=== PATIENT | female | born 1960 | race Two or more races ===

== ENCOUNTER 2018-07-27 07:56 | Emergency (ER) | payer MEDICARE, BC ==
[~2018-07-27] VITALS: Ht 152.4 cm; Wt 36.2 kg
[2018-07-27] MEDS ORDERED: ipratropium/albuterol 3ml nebule ONE (08:24)
[2018-07-27] MEDS ORDERED: methylPREDNISolone sod succ 125mg/2ml vial IV ONE (08:25)
[2018-07-27] MEDS ORDERED: ipratropium/albuterol 3ml nebule NEB ONE (08:25)
[2018-07-27 08:40] LABS: EOSINOPHILS # (AUTO) 0.1 X10'3 (0-0.9); EOSINOPHILS % (AUTO) 0.5 % (0-6); HEMOGLOBIN 14.7 g/dl (12.0-16.0); LYMPHOCYTES # (AUTO) 0.5 X10'3 (1.1-4.8); MONOCYTES # (AUTO) 0.6 X10'3 (0-0.9); PLATELET COUNT 174 X10'3 (140-440)
[2018-07-27 08:53] LABS: ALANINE AMINOTRANSFERASE 22 U/L (12-78); ALBUMIN 3.9 G/DL (3.4-5.0); ALBUMIN/GLOBULIN RATIO 1.5 (1.1-1.5); ALKALINE PHOSPHATASE 89 IU/L (46-116); ANION GAP 9 (8-16); ASPARTATE AMINO TRANSFERASE 12 U/L (10-37); BILIRUBIN,TOTAL 0.5 MG/DL (0.1-1.0); BLOOD UREA NITROGEN 13 MG/DL (7-18); CALCIUM 8.8 MG/DL (8.5-10.1); CHLORIDE 101 MMOL/L (99-107); GLUCOSE 102 MG/DL (70-104); POTASSIUM 3.5 MMOL/L (3.5-5.1); SODIUM 139 MMOL/L (135-145); TOTAL CARBON DIOXIDE 28.8 MMOL/L (24-32); TOTAL PROTEIN 6.5 G/DL (6.4-8.2); eGFR > 90 ML/MIN
[2018-07-27 09:17] LABS: BASOPHILS # (AUTO) 0.2 X10'3 (0-0.2); BASOPHILS % (AUTO) 1.3 % (0-1); HEMATOCRIT 44.7 % (35.0-45.0); LYMPHOCYTES % (AUTO) 3.9 % (21-51); MEAN CORPUSCULAR HEMOGLOBIN 31.3 PG (27.0-31.0); MEAN CORPUSCULAR HGB CONC 32.8 % (33.0-36.5); MEAN CORPUSCULAR VOLUME 95.3 FL (78-98); MEAN PLATELET VOLUME 10.2 FL (7.4-10.4); MONOCYTES % (AUTO) 4.8 % (2-12); NEUTROPHILS # (AUTO) 10.7 X10'3 (1.8-7.7); NEUTROPHILS % (AUTO) 89.5 % (42-75); RED BLOOD COUNT 4.69 X10'6 (4.20-5.60); RED CELL DISTRIBUTION WIDTH 12.3 % (11.5-14.5); WHITE BLOOD COUNT 12.1 X10'3 (4.5-11.0)
[2018-07-27] MEDS ORDERED: LORazepam 2 mg/ml vial IV ONE (09:20)
--- NOTE | 2018-07-27 09:58 | NUR ---
MICHAEL DIXON AT BEDSIDE FOR RE-EVALUATION NOW.
[2018-07-27] MEDS ORDERED: LEVO750T21 PO (10:06)
[2018-07-27] MEDS ORDERED: METH4TAB81 PO (10:06)
[2018-07-27 11:12] VITALS: BP 146/73
== END 2018-07-27 11:15 | disposition home or self-care (01) ==
LOC: ER 07:57
DX: J44.1 Chronic obstructive pulmonary disease with (acute) exacerbation (principal); R91.1 Solitary pulmonary nodule
CPT/HCPCS: 36415; 71046; 80053; 83605; 84484; 85025; 87040; 93005; 94640; 94760; 96374; 96375; 99284; J2060; J2930

== ENCOUNTER 2019-07-21 10:26 | Emergency (ER) | payer OTHER, MEDICARE ==
[~2019-07-21] VITALS: Ht 154.9 cm; Wt 50.0 kg
[~2019-07-21 10:26] MED LIST: METH4TAB81 PO
[2019-07-21 10:30] VITALS: BP 122/70
[2019-07-21] MEDS ORDERED: acetaminophen 325mg tablet PO ONE (10:40)
[2019-07-21] MEDS ORDERED: ondansetron/PF 4mg/2ml inj IV ONE (10:40)
[2019-07-21] MEDS ORDERED: normal saline 1000ml 1,000 ML IV ONE ×2 (10:40→11:45)
--- NOTE | 2019-07-21 11:06 | NUR ---
RELIEVING RN FOR BREAK, PT IS RESTING QUIETLY ON GURNEY, 1ST SET OF BLOOD CXS DRAWN, STARTED 22GU TO RT FOREARM ON 2ND ATTEMPT, 1 ST LITER NS INFUSING W/O, FLU SWAP DONE
--- NOTE | 2019-07-21 11:13 | NUR ---
PT MILTON WATER AND PO MED WELL, NO N/V, TURNED LIGHTS OFF, FAMILY AT BEDSIDE
[2019-07-21 11:14] LABS: BASOPHILS % (AUTO) 0.3 % (0-1); EOSINOPHILS % (AUTO) 0.4 % (0-6); HEMATOCRIT 40.9 % (35.0-45.0); HEMOGLOBIN 13.8 g/dl (12.0-16.0); LYMPHOCYTES # (AUTO) 0.3 X10'3 (1.1-4.8); LYMPHOCYTES % (AUTO) 3.8 % (21-51); MEAN CORPUSCULAR HEMOGLOBIN 31.8 PG (27.0-31.0); MEAN CORPUSCULAR HGB CONC 33.7 g/dL (33.0-36.5); MEAN CORPUSCULAR VOLUME 94.2 FL (78-98); MONOCYTES # (AUTO) 0.4 X10'3 (0-0.9); MONOCYTES % (AUTO) 5.7 % (2-12); NEUTROPHILS # (AUTO) 6.5 X10'3 (1.8-7.7); NEUTROPHILS % (AUTO) 89.8 % (42-75); PLATELET COUNT 138 X10'3 (140-440); RED BLOOD COUNT 4.34 X10'6 (4.20-5.60); RED CELL DISTRIBUTION WIDTH 13.8 % (11.5-14.5); WHITE BLOOD COUNT 7.2 X10'3 (4.5-11.0)
[2019-07-21 11:26] LABS: ALANINE AMINOTRANSFERASE 27 U/L (12-78); ALBUMIN 3.8 G/DL (3.4-5.0); ALBUMIN/GLOBULIN RATIO 1.6 (1.1-1.5); ALKALINE PHOSPHATASE 87 IU/L (46-116); ANION GAP 9 (8-16); ASPARTATE AMINO TRANSFERASE 16 U/L (10-37); BILIRUBIN,TOTAL 0.6 MG/DL (0.1-1.0); BLOOD UREA NITROGEN 21 MG/DL (7-18); BUN/CREATININE RATIO 36.2 (6.6-38.0); CALCIUM 8.4 MG/DL (8.5-10.1); CHLORIDE 100 MMOL/L (99-107); CREATININE 0.58 MG/DL (0.40-0.90); GLUCOSE 99 MG/DL (70-104); POTASSIUM 3.5 MMOL/L (3.5-5.1); SODIUM 137 MMOL/L (135-145); TOTAL CARBON DIOXIDE 28.4 MMOL/L (24-32); TOTAL PROTEIN 6.2 G/DL (6.4-8.2); eGFR > 90 ML/MIN
[2019-07-21 11:30] LABS: TROPONIN I < 0.04 NG/ML (0.0-0.05)
== END 2019-07-21 12:50 | disposition home or self-care (01) ==
LOC: ER 10:26
DX: J10.1 Influenza due to other identified influenza virus with other respiratory manifestations (principal); R11.10 Vomiting, unspecified; J44.9 Chronic obstructive pulmonary disease, unspecified; Z79.899 Other long term (current) drug therapy
CPT/HCPCS: 36415; 71045; 80053; 83605; 84145; 84484; 85025; 85610; 87502; 87503; 96361; 96374; 99284; J2405; J7030

== ENCOUNTER 2019-07-22 18:31 | Inpatient (IN) | payer BC, MEDICARE, OTHER ==
[~2019-07-22] VITALS: Ht 152.4 cm; Wt 45.0 kg
[~2019-07-22 18:31] MED LIST changes: +etomidate 2mg/ml inj. ONE
[2019-07-22] MEDS ORDERED: ketorolac trometh. 30mg/ml inj. IV ONE (19:30)
[2019-07-22] MEDS ORDERED: normal saline 1000ML IV soln IVB ONE ×2 (19:30→19:35)
[2019-07-22] MEDS ORDERED: dexamethasone sod phosphate 10mg/ml inj IV STA (19:33)
[2019-07-22] MEDS ORDERED: oseltamivir phos 75mg capsule PO ONE (19:35)
[2019-07-22] MEDS ORDERED: albuterol 2.5 MG/3 ML nebule CONTNEB PRN (19:35)
[2019-07-22] MEDS ORDERED: ondansetron/PF 4mg/2ml inj IV ONE (19:35)
[2019-07-22] MEDS ORDERED: ipratropium 0.5 MG/2.5ML nebule IH ONE (19:35)
[2019-07-22] MEDS ORDERED: LORazepam 2 mg/ml vial IV ONE (20:05)
[2019-07-22 20:06] LABS: BASOPHILS % (AUTO) 0.2 % (0-1); EOSINOPHILS % (AUTO) 0 % (0-6); HEMATOCRIT 38.6 % (35.0-45.0); HEMOGLOBIN 13.6 g/dl (12.0-16.0); LYMPHOCYTES # (AUTO) 0.1 X10'3 (1.1-4.8); LYMPHOCYTES % (AUTO) 0.7 % (21-51); MEAN CORPUSCULAR HEMOGLOBIN 32.2 PG (27.0-31.0); MEAN CORPUSCULAR HGB CONC 35.1 g/dL (33.0-36.5); MEAN CORPUSCULAR VOLUME 91.7 FL (78-98); MEAN PLATELET VOLUME 9.5 FL (7.4-10.4); MONOCYTES # (AUTO) 0.7 X10'3 (0-0.9); MONOCYTES % (AUTO) 5.7 % (2-12); NEUTROPHILS # (AUTO) 11.7 X10'3 (1.8-7.7); NEUTROPHILS % (AUTO) 93.4 % (42-75); PLATELET COUNT 138 X10'3 (140-440); RED BLOOD COUNT 4.21 X10'6 (4.20-5.60); RED CELL DISTRIBUTION WIDTH 12.9 % (11.5-14.5); WHITE BLOOD COUNT 12.6 X10'3 (4.5-11.0)
[2019-07-22] MEDS ORDERED: azithromycin/NS 500mg/250ml 250 ML IV ONE (20:10)
[2019-07-22] MEDS ORDERED: CefTRIAXone 2gm/D5W 50ml 50 ML IV ONE (20:10)
[2019-07-22 20:19] LABS: ALANINE AMINOTRANSFERASE 30 U/L (12-78); ALBUMIN 3.7 G/DL (3.4-5.0); ALBUMIN/GLOBULIN RATIO 1.5 (1.1-1.5); ALKALINE PHOSPHATASE 97 IU/L (46-116); ANION GAP 7 (8-16); ASPARTATE AMINO TRANSFERASE 33 U/L (10-37); BILIRUBIN,TOTAL 0.5 MG/DL (0.1-1.0); BLOOD UREA NITROGEN 9 MG/DL (7-18); BUN/CREATININE RATIO 19.6 (6.6-38.0); CALCIUM 7.8 MG/DL (8.5-10.1); CHLORIDE 81 MMOL/L (99-107); CREATININE 0.46 MG/DL (0.40-0.90); GLUCOSE 108 MG/DL (70-104); POTASSIUM 4.7 MMOL/L (3.5-5.1); TOTAL CARBON DIOXIDE 25.4 MMOL/L (24-32); TOTAL PROTEIN 6.1 G/DL (6.4-8.2); eGFR > 90 ML/MIN
[2019-07-22 20:22] LABS: SODIUM 113 MMOL/L (135-145)
[2019-07-22] MEDS ORDERED: morphine 2 MG/ML inj. syringe IV ONE (20:30)
[2019-07-22 20:56] LABS: ABG BASE EXCESS -9.8 mmol/L (-2.0-3.0); ABG OXYGEN SATURATION 94.3 % (95-98); ABG PCO2 (T) 45.9 mmHg (35.0-45.0); ABG PH (T) 7.209 (7.350-7.450); ABG PO2 (T) 79.6 mmHg (83-108); FCOHb 1.6 % (0.5-1.5); FLOW 2 L/min; FMetHb 0.2 % (0.3-1.12); FO2Hb 92.6 % (94-100); PATIENT TEMPERATURE 36.6; RESPIRATORY RATE (OBSERVED) 30 b/min; TOTAL HEMOGLOBIN 13.7 G/dl (12.0-16.0)
[2019-07-22 21:08] LABS: ALANINE AMINOTRANSFERASE 27 U/L (12-78); ALBUMIN 3.2 G/DL (3.4-5.0); ALBUMIN/GLOBULIN RATIO 1.3 (1.1-1.5); ALKALINE PHOSPHATASE 87 IU/L (46-116); ANION GAP 7 (8-16); ASPARTATE AMINO TRANSFERASE 31 U/L (10-37); BILIRUBIN,TOTAL 0.4 MG/DL (0.1-1.0); BLOOD UREA NITROGEN 8 MG/DL (7-18); BUN/CREATININE RATIO 18.6 (6.6-38.0); CALCIUM 7.1 MG/DL (8.5-10.1); CHLORIDE 84 MMOL/L (99-107); CREATININE 0.43 MG/DL (0.40-0.90); GLUCOSE 108 MG/DL (70-104); POTASSIUM 4.6 MMOL/L (3.5-5.1); TOTAL CARBON DIOXIDE 24.5 MMOL/L (24-32); TOTAL PROTEIN 5.6 G/DL (6.4-8.2); eGFR > 90 ML/MIN
[2019-07-22 21:10] LABS: SODIUM 115 MMOL/L (135-145)
[2019-07-22] MEDS ORDERED: succinylcholine 20mg/ml inj IV ONE (21:10)
[2019-07-22] MEDS ORDERED: propofol 1000mg/100ml bottle 100 ML IV ONE (21:22)
--- NOTE | 2019-07-22 21:29 | NUR ---
x ray at bedside
--- NOTE | 2019-07-22 21:40 | NUR ---
temp chung cath placed
--- NOTE | 2019-07-22 21:52 | NUR ---
Medication given during RSI prior to my arrival. See charting for for timing.
[2019-07-22 21:56] LABS: ABG BASE EXCESS -12.6 mmol/L (-2.0-3.0); ABG HCO3 15.3 mmol/L (22.0-26.0); ABG OXYGEN SATURATION 98.7 % (95-98); ABG PCO2 (T) 41.7 mmHg (35.0-45.0); ABG PH (T) 7.181 (7.350-7.450); ABG PO2 (T) 173.4 mmHg (83-108); ALLEN'S TEST Positive; FCOHb 1.3 % (0.5-1.5); FMetHb 0.2 % (0.3-1.12); FO2Hb 97.2 % (94-100); PATIENT TEMPERATURE 36.8; PEEP 5 cm H2O; RESPIRATORY RATE 16 b/min; RESPIRATORY RATE (OBSERVED) 16 b/min; TIDAL VOLUME 400 mL; TOTAL HEMOGLOBIN 13.3 G/dl (12.0-16.0)
[2019-07-22 21:58] LABS: CLARITY,URINE CLEAR (Clear); COLOR,URINE YELLOW (Yellow); GLUCOSE, URINE NEGATIVE (Neg); KETONES,URINE 40 mg/dl (Neg); LEUKOCYTE ESTERASE ,URINE NEGATIVE (Neg); NITRITES, URINE NEGATIVE (Neg); OCCULT BLOOD,URINE TRACE-INTACT (Neg); PH,URINE 5.5 (4.8-8.0); PROTEIN,URINE 30 mg/dl (Neg); UROBILINOGEN,URINE 0.2 E.U/dL (0.2-1.0)
[2019-07-22] MEDS: propofol 1000mg/100ml bottle 100 ML IV PRN (21:59)
[2019-07-22 22:01] LABS: UA COLLECTION TYPE FOLEY CATH
[2019-07-22] MEDS ORDERED: midazolam 100mg in NS 100ml 100 ML IV PRN (22:02)
--- NOTE | 2019-07-22 22:03 | NUR ---
Assuming care of patient. No report provided from the nurse previously caring for this patient.
[2019-07-22] MEDS ORDERED: sodium phosphate inj. 15 MMOL in dextrose 5%-water 150 ML IV PRN (22:05)
[2019-07-22] MEDS ORDERED: acetaminophen 325mg tablet PO PRN ×2 (22:05)
[2019-07-22] MEDS ORDERED: sodium phosphate inj. 30 MMOL in dextrose 5%-water 250 ML IV PRN (22:05)
[2019-07-22] MEDS ORDERED: magnesium 2GM in 50ml NS 50 ML IV PRN (22:05)
[2019-07-22] MEDS ORDERED: magnesium Cl slow-release 64mg tablet PO PRN (22:05)
[2019-07-22] MEDS ORDERED: acetaminophen 650mg rectal suppository RC PRN (22:05)
[2019-07-22] MEDS ORDERED: magnesium 4gm in 100ml NS 100 ML IV PRN (22:05)
[2019-07-22] MEDS ORDERED: ipratropium/albuterol 3ml nebule NEB PRN (22:05)
[2019-07-22] MEDS ORDERED: potassium Cl 20 mEq SR tablet PO PRN ×2 (22:05)
[2019-07-22] MEDS ORDERED: magnesium hydroxide 30ml (MOM) UD suspension PO PRN (22:05)
[2019-07-22] MEDS ORDERED: ondansetron/PF 4mg/2ml inj IV PRN (22:05)
[2019-07-22] MEDS ORDERED: Neutra Phos packet PO PRN (22:05)
[2019-07-22] MEDS ORDERED: potassium CL 10mEq/100ml bag 100 ML IV PRN ×2 (22:05)
[2019-07-22 22:10] LABS: BACTERIA,URINE NONE SEEN /HPF (Neg); MUCUS STRANDS FEW /LPF (Neg); SQUAMOUS EPITHELIAL CELL,UR FEW /LPF (FEW); WBC,URINE 0-4 /HPF (0-4)
[2019-07-22 22:11] LABS: AMORPHOUS URATES 1+; FINE GRANULAR CAST 0-3 /LPF (NEGATIVE)
[2019-07-22] MEDS ORDERED: sodium bicarbonate (8.4%) 1 mEq/ml syringe IV ONE (22:45)
[2019-07-22 22:53] LABS: OSMOLALITY UA 552 MOSM/K (50-1400)
[2019-07-22] MEDS: normal saline 1000ml 1,000 ML IV SCH (22:57)
[2019-07-22] MEDS ORDERED: sodium bicarbonate (8.4%) inj. 1 MEQ/ML ML IV ONE (23:00)
[2019-07-22 23:05] LABS: SODIUM,URINE RANDOM 137 MEQ/L
--- NOTE | 2019-07-22 23:25 | NUR ---
RN Note -Received pt from ED
[2019-07-22 23:30] VITALS: BP 140/65
--- NOTE | 2019-07-22 23:45 | NUR ---
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 Orders received.
[2019-07-23] VITALS (24 sets, daily range): BP systolic 91–162; BP diastolic 48–83
[2019-07-23 01:59] LABS: ANION GAP 5 (8-16); BLOOD UREA NITROGEN 8 MG/DL (7-18); BUN/CREATININE RATIO 21.6 (6.6-38.0); CALCIUM 7.1 MG/DL (8.5-10.1); CHLORIDE 87 MMOL/L (99-107); CREATININE 0.37 MG/DL (0.40-0.90); GLUCOSE 102 MG/DL (70-104); POTASSIUM 4.3 MMOL/L (3.5-5.1); TOTAL CARBON DIOXIDE 24.4 MMOL/L (24-32); eGFR > 90 ML/MIN
[2019-07-23 02:00] LABS: SODIUM 116 MMOL/L (135-145)
[2019-07-23 03:21] LABS: ABG BASE EXCESS -6.2 mmol/L (-2.0-3.0); ABG HCO3 19.9 mmol/L (22.0-26.0); ABG OXYGEN SATURATION 95.7 % (95-98); ABG PCO2 (T) 42.2 mmHg (35.0-45.0); ABG PH (T) 7.293 (7.350-7.450); ABG PO2 (T) 81.7 mmHg (83-108); FMetHb 0.2 % (0.3-1.12); FO2Hb 94.6 % (94-100); MINUTE VOLUME 8 L/min; PATIENT TEMPERATURE 37.4; PEEP 5 cm H2O; RESPIRATORY RATE 16 b/min; RESPIRATORY RATE (OBSERVED) 22 b/min; TOTAL HEMOGLOBIN 13.9 G/dl (12.0-16.0)
[2019-07-23] MEDS: K, MAG and/or Phos replacement - Verify level? MC SCH ×2 (03:53→08:00)
[2019-07-23] MEDS: methylPREDNISolone sod succ/PF 40mg inj. IV SCH ×4 (03:59→20:53)
[2019-07-23 05:36] LABS: ALANINE AMINOTRANSFERASE 35 U/L (12-78); ALBUMIN 2.9 G/DL (3.4-5.0); ALBUMIN/GLOBULIN RATIO 1.3 (1.1-1.5); ALKALINE PHOSPHATASE 153 IU/L (46-116); ANION GAP 9 (8-16); ASPARTATE AMINO TRANSFERASE 50 U/L (10-37); BILIRUBIN,TOTAL 0.3 MG/DL (0.1-1.0); BLOOD UREA NITROGEN 9 MG/DL (7-18); BUN/CREATININE RATIO 26.5 (6.6-38.0); CALCIUM 7.2 MG/DL (8.5-10.1); CHLORIDE 87 MMOL/L (99-107); CREATININE 0.34 MG/DL (0.40-0.90); GLUCOSE 97 MG/DL (70-104); MAGNESIUM 1.4 MG/DL (1.5-2.4); PHOSPHORUS 1.9 MG/DL (2.3-4.5); POTASSIUM 4.2 MMOL/L (3.5-5.1); TOTAL CARBON DIOXIDE 21.4 MMOL/L (24-32); TOTAL PROTEIN 5.1 G/DL (6.4-8.2); TRIGLYCERIDES 64 MG/DL (20-135); eGFR > 90 ML/MIN
[2019-07-23 05:39] LABS: BASOPHILS % (AUTO) 0.1 % (0-1); EOSINOPHILS % (AUTO) 0 % (0-6); HEMATOCRIT 39.5 % (35.0-45.0); HEMOGLOBIN 13.7 g/dl (12.0-16.0); LYMPHOCYTES # (AUTO) 0.3 X10'3 (1.1-4.8); LYMPHOCYTES % (AUTO) 2.6 % (21-51); MEAN CORPUSCULAR HEMOGLOBIN 32.1 PG (27.0-31.0); MEAN CORPUSCULAR HGB CONC 34.5 g/dL (33.0-36.5); MEAN PLATELET VOLUME 9.7 FL (7.4-10.4); MONOCYTES # (AUTO) 0.2 X10'3 (0-0.9); MONOCYTES % (AUTO) 1.8 % (2-12); NEUTROPHILS # (AUTO) 9.6 X10'3 (1.8-7.7); NEUTROPHILS % (AUTO) 95.5 % (42-75); PLATELET COUNT 111 X10'3 (140-440); RED BLOOD COUNT 4.25 X10'6 (4.20-5.60); RED CELL DISTRIBUTION WIDTH 12.9 % (11.5-14.5); WHITE BLOOD COUNT 10.1 X10'3 (4.5-11.0)
[2019-07-23 05:46] LABS: SODIUM 117 MMOL/L (135-145)
[2019-07-23] MEDS ORDERED: demeclocycline 150mg tablet PO SCH (07:00)
[2019-07-23] MEDS: oseltamivir phos 75mg capsule PO SCH ×2 (07:20→21:01)
[2019-07-23] MEDS: pantoprazole 40 MG vial IV SCH (07:21)
[2019-07-23] MEDS: enoxaparin 40mg/0.4ml syringe SUBCUT SCH (07:22)
[2019-07-23] MEDS: levoFLOXACIN-Levaquin 750MG/D5 150 ML IV SCH (07:22)
[2019-07-23] MEDS: furosemide 20 MG/2 ML vial IV SCH ×2 (07:22→20:53)
[2019-07-23] MEDS: propofol 1000mg/100ml bottle 100 ML IV PRN ×2 (07:47→15:55)
[2019-07-23] MEDS: normal saline 1000ml 1,000 ML IV SCH ×2 (08:02→17:38)
--- NOTE | 2019-07-23 11:10 | NUR ---
TF Consult: Pt intubated admit w/ COPD exacerbation, PNA, and acute SIADH w/ hyponatremia Na 113. Na went from 135 to 113 in 24 hours per MD. OGTF to start today per MD. Receiving electrolyte replacements per protocol and to hold water flushes w/ hyponatremia per MD. Current wt 50.9kg bed scale not 40.9kg as current EMR correcting actual BMI to 21.9.TF recs below given pt intubation needs. Will monitor for EN tolerance. Rec: 1. OGTF per MD using Vital AF at 50ml/hr goal; to provide 1200ml fluid, 972ml free water, 1440kcals, and 90g protein. Initiate at 20ml/hr and advance 20ml Q8 to goal as tolerated. 2. hold free water per MD; Na 117 w/ SIADH 3. PALB W /; daily wts 4. routine bowel care 5. monitor for EN tolerance Addendum: 07/23/19 at [address] Amended: Links added.
[2019-07-23] MEDS: FENTANYL-0.9 % NACL/PF 100 ML IV PRN ×2 (12:11→21:02)
[2019-07-23] MEDS ORDERED: TOLVAPTAN 30 MG TABLET PO SCH (13:00)
[2019-07-23] MEDS ORDERED: BUDE10.2 PO (13:47)
[2019-07-23] MEDS ORDERED: ALBU8.5H8 PO (13:47)
[2019-07-23] MEDS ORDERED: ACET-3067 PO (13:47)
[2019-07-23] MEDS ORDERED: ESTR0.5T28 PO (13:47)
[2019-07-23] MEDS ORDERED: PROP20TA6 PO (13:47)
[2019-07-23] MEDS ORDERED: TIOT18CA3 PO (13:47)
[2019-07-23] MEDS ORDERED: ALPR0.5T9 PO (13:47)
[2019-07-23] MEDS ORDERED: METH750T3 PO (13:47)
[2019-07-23 17:37] LABS: SODIUM 119 MMOL/L (135-145)
[2019-07-23 17:51] LABS: ALBUMIN 2.7 G/DL (3.4-5.0); BLOOD UREA NITROGEN 14 MG/DL (7-18); BUN/CREATININE RATIO 29.8 (6.6-38.0); CALCIUM 7.2 MG/DL (8.5-10.1); CREATININE 0.47 MG/DL (0.40-0.90); GLUCOSE 100 MG/DL (70-104); PHOSPHORUS 2.5 MG/DL (2.3-4.5); TOTAL CARBON DIOXIDE 24.3 MMOL/L (24-32); eGFR > 90 ML/MIN
[2019-07-23 17:54] LABS: ANION GAP 7 (8-16); CHLORIDE 88 MMOL/L (99-107); POTASSIUM 3.9 MMOL/L (3.5-5.1)
--- NOTE | 2019-07-23 18:35 | NUR ---
Patient in room ICU 2041. I have received report from Carissa EDWARD, and had the opportunity to ask questions and assume patient care.
[2019-07-23] MEDS ORDERED: potassium Cl 20 mEq SR tablet OGT PRN ×2 (19:03→19:04)
[2019-07-23] MEDS ORDERED: magnesium hydroxide 30ml (MOM) UD suspension OGT PRN (19:08)
[2019-07-23] MEDS ORDERED: acetaminophen 325mg tablet OGT PRN (19:08)
--- NOTE | 2019-07-23 19:30 | NUR ---
PT is resting with no s/s of distress noted at this time. VSS. PT is intubated and mechanically vented. Tolerating settings well, O2 sat >95%. PT receiving Propofol, Fentanyl and Versed for sedation, tolerating well. TF is running @ 20mL/hr to OG, will increase and PT tolerated. Del Angel in place and draining to gravity. Bed is locked and low. Bilat soft wrist restraints in place and secure. Will continue to monitor.
[2019-07-23] MEDS: CefTRIAXone 2gm/D5W 50ml 50 ML IV SCH (20:53)
[2019-07-24] VITALS (24 sets, daily range): BP systolic 81–141; BP diastolic 41–72
--- NOTE | 2019-07-24 00:15 | NUR ---
Sedation decreased d/t PT being hypotensive. BP got as low as 77/41. PT is tolerating the decrease in sedation. BP improving and PT still resting with no s/s of distress noted at this time. Will continue to monitor.
[2019-07-24] MEDS: propofol 1000mg/100ml bottle 100 ML IV PRN (01:22)
[2019-07-24] MEDS: methylPREDNISolone sod succ/PF 40mg inj. IV SCH ×4 (02:41→20:57)
[2019-07-24] MEDS: mineral oil/petrolatum ophthal oint EACHEYE SCH ×4 (02:41→20:00)
[2019-07-24] MEDS: ipratropium/albuterol 3ml nebule IH SCH ×4 (03:22→21:41)
--- NOTE | 2019-07-24 03:30 | NUR ---
PT continues to rest with no s/s of distress noted at this time. VSS. PT tolerating decrease in sedation. Bed is locked and low. Bilat soft wrist restraints in place and secure. Will continue to monitor.
[2019-07-24] MEDS: normal saline 1000ml 1,000 ML IV SCH ×2 (04:02→13:41)
[2019-07-24 04:16] LABS: ABG BASE EXCESS -1.6 mmol/L (-2.0-3.0); ABG HCO3 23.9 mmol/L (22.0-26.0); ABG OXYGEN SATURATION 96.1 % (95-98); ABG PCO2 (T) 44.1 mmHg (35.0-45.0); ABG PH (T) 7.354 (7.350-7.450); ABG PO2 (T) 87.5 mmHg (83-108); ALLEN'S TEST Positive; FCOHb 0.3 % (0.5-1.5); FMetHb 0.3 % (0.3-1.12); FO2Hb 95.5 % (94-100); MINUTE VOLUME 7 L/min; PATIENT TEMPERATURE 37.6; PEEP 5 cm H2O; RESPIRATORY RATE 16 b/min; RESPIRATORY RATE (OBSERVED) 16 b/min; TOTAL HEMOGLOBIN 15.3 G/dl (12.0-16.0)
[2019-07-24 05:10] LABS: BASOPHILS % (AUTO) 0.1 % (0-1); EOSINOPHILS % (AUTO) 0 % (0-6); HEMATOCRIT 42.4 % (35.0-45.0); HEMOGLOBIN 14.8 g/dl (12.0-16.0); LYMPHOCYTES # (AUTO) 0.2 X10'3 (1.1-4.8); LYMPHOCYTES % (AUTO) 3.6 % (21-51); MEAN CORPUSCULAR HEMOGLOBIN 31.7 PG (27.0-31.0); MEAN CORPUSCULAR HGB CONC 34.9 g/dL (33.0-36.5); MEAN CORPUSCULAR VOLUME 90.8 FL (78-98); MEAN PLATELET VOLUME 9.8 FL (7.4-10.4); MONOCYTES # (AUTO) 0.3 X10'3 (0-0.9); MONOCYTES % (AUTO) 4.8 % (2-12); NEUTROPHILS # (AUTO) 5.9 X10'3 (1.8-7.7); NEUTROPHILS % (AUTO) 91.5 % (42-75); PLATELET COUNT 139 X10'3 (140-440); RED BLOOD COUNT 4.67 X10'6 (4.20-5.60); RED CELL DISTRIBUTION WIDTH 13.1 % (11.5-14.5); WHITE BLOOD COUNT 6.5 X10'3 (4.5-11.0)
[2019-07-24 05:19] LABS: ALANINE AMINOTRANSFERASE 33 U/L (12-78); ALBUMIN 2.6 G/DL (3.4-5.0); ALKALINE PHOSPHATASE 123 IU/L (46-116); ANION GAP 7 (8-16); ASPARTATE AMINO TRANSFERASE 41 U/L (10-37); BILIRUBIN,TOTAL 0.2 MG/DL (0.1-1.0); BLOOD UREA NITROGEN 21 MG/DL (7-18); BUN/CREATININE RATIO 44.7 (6.6-38.0); CALCIUM 7.6 MG/DL (8.5-10.1); CHLORIDE 93 MMOL/L (99-107); CREATININE 0.47 MG/DL (0.40-0.90); GLUCOSE 145 MG/DL (70-104); MAGNESIUM 2.5 MG/DL (1.5-2.4); PHOSPHORUS 2.6 MG/DL (2.3-4.5); POTASSIUM 4.2 MMOL/L (3.5-5.1); PREALBUMIN 14.5 MG/DL (19-36); SODIUM 127 MMOL/L (135-145); TOTAL CARBON DIOXIDE 27.1 MMOL/L (24-32); TOTAL PROTEIN 5.1 G/DL (6.4-8.2); eGFR > 90 ML/MIN
--- NOTE | 2019-07-24 06:44 | NUR ---
Problems reprioritized. Patient report given, questions answered & plan of care reviewed with Nabor EDWARD.
[2019-07-24] MEDS: furosemide 20 MG/2 ML vial IV SCH ×2 (07:13→20:56)
[2019-07-24] MEDS: pantoprazole 40 MG vial IV SCH (07:13)
[2019-07-24] MEDS: levoFLOXACIN-Levaquin 750MG/D5 150 ML IV SCH (07:14)
[2019-07-24] MEDS: enoxaparin 40mg/0.4ml syringe SUBCUT SCH (07:14)
[2019-07-24] MEDS: K, MAG and/or Phos replacement - Verify level? MC SCH (08:00)
[2019-07-24] MEDS: budesonide 0.5mg/2ml UD nebule IH SCH ×2 (08:18→21:41)
[2019-07-24] MEDS: FENTANYL-0.9 % NACL/PF 100 ML IV PRN (08:54)
[2019-07-24] MEDS: oseltamivir phos 75mg capsule PO SCH ×2 (08:54→20:57)
[2019-07-24] MEDS: acetaminophen 325mg tablet OGT PRN ×2 (08:55→16:02)
[2019-07-24] MEDS ORDERED: FENTANYL-0.9 % NACL/PF 100 ML IV PRN (09:14)
[2019-07-24] MEDS ORDERED: propofol 1000mg/100ml bottle 100 ML IV PRN (09:14)
[2019-07-24] MEDS ORDERED: midazolam 100mg in NS 100ml 100 ML IV PRN (09:14)
--- NOTE | 2019-07-24 11:51 | NUR ---
Sedation stopped to get weaning parameters. RT at bedside. RSBI 17. NIf -25. MD Tuttle aware.
[2019-07-24] MEDS ORDERED: polyethylene glycol 3350 17gm powd pack PO ONE (12:00)
--- NOTE | 2019-07-24 12:25 | NUR ---
Weaning parameters passed. Pt with cuff leak, VC 1129, RSBI 17, NIF -25. Pt following commands and tapping side rail. Family at bedside. Marry notified. Orders to extubate pt. Awaiting RT to come to bedside.
--- NOTE | 2019-07-24 13:04 | NUR ---
Pt extubated to 2L NC per MD garrison orders. Pt satin 97% on 2L NC. AxOX4. family at bedside. Will continue to monitor closely.
[2019-07-24] MEDS ORDERED: MESSAGE TO PHARMACY PO ONE (13:25)
[2019-07-24] MEDS ORDERED: insulin Lispro (HumaLOG) vial - multi-dose SQ SCH (13:25)
[2019-07-24] MEDS ORDERED: dextrose ORAL solution 15 GM/59 ML bottle PO PRN ×2 (13:25)
[2019-07-24] MEDS ORDERED: dextrose 50%-water 50ml dispensing syringe IV PRN ×2 (13:25)
[2019-07-24] MEDS ORDERED: glucagon, human recombinant 1mg kit SUBCUT PRN (13:25)
[2019-07-24 14:02] LABS: HEMOGLOBIN A1C 5.4 % (4.5-6.2)
--- NOTE | 2019-07-24 18:10 | NUR ---
Patient in room ICU 2041. I have received report from offgoing RN and had the opportunity to ask questions and assume patient care.
[2019-07-24] MEDS: morphine 4 MG/ML inj SYRINge IV PRN (18:59)
[2019-07-24] MEDS: lactobacillus rhamnosus 10,000 MMU CELLS/CAPSULE PO SCH (20:56)
[2019-07-24] MEDS: CefTRIAXone 2gm/D5W 50ml 50 ML IV SCH (20:57)
[2019-07-24] MEDS: insulin glargine (Lantus) pen - multi-dose SQ SCH (21:00)
[2019-07-24] MEDS: morphine 2 MG/ML inj. syringe IV PRN (23:31)
[2019-07-24] MEDS: propranolol 10mg tablet PO SCH (23:31)
[2019-07-25] VITALS (17 sets, daily range): BP systolic 110–141; BP diastolic 54–72
[2019-07-25] MEDS: normal saline 1000ml 1,000 ML IV SCH (00:02)
[2019-07-25] MEDS: acetaminophen 325mg tablet OGT PRN (01:18)
[2019-07-25] MEDS: mineral oil/petrolatum ophthal oint EACHEYE SCH ×4 (02:00→20:00)
[2019-07-25] MEDS: methylPREDNISolone sod succ/PF 40mg inj. IV SCH ×4 (02:21→19:36)
[2019-07-25] MEDS: ipratropium/albuterol 3ml nebule IH SCH ×3 (03:00→21:07)
[2019-07-25] MEDS: morphine 4 MG/ML inj SYRINge IV PRN (04:27)
[2019-07-25 05:27] LABS: ALANINE AMINOTRANSFERASE 33 U/L (12-78); ALBUMIN 2.7 G/DL (3.4-5.0); ALBUMIN/GLOBULIN RATIO 1.2 (1.1-1.5); ALKALINE PHOSPHATASE 100 IU/L (46-116); ANION GAP 3 (8-16); ASPARTATE AMINO TRANSFERASE 32 U/L (10-37); BILIRUBIN,TOTAL 0.2 MG/DL (0.1-1.0); BLOOD UREA NITROGEN 21 MG/DL (7-18); CALCIUM 8.3 MG/DL (8.5-10.1); CHLORIDE 96 MMOL/L (99-107); GLUCOSE 126 MG/DL (70-104); MAGNESIUM 2.1 MG/DL (1.5-2.4); PHOSPHORUS 1.9 MG/DL (2.3-4.5); POTASSIUM 4.5 MMOL/L (3.5-5.1); SODIUM 131 MMOL/L (135-145); TOTAL CARBON DIOXIDE 32.1 MMOL/L (24-32); eGFR > 90 ML/MIN
[2019-07-25 05:28] LABS: BASOPHILS % (AUTO) 0 % (0-1); EOSINOPHILS % (AUTO) 0 % (0-6); HEMATOCRIT 37.9 % (35.0-45.0); HEMOGLOBIN 13.2 g/dl (12.0-16.0); LYMPHOCYTES # (AUTO) 0.3 X10'3 (1.1-4.8); LYMPHOCYTES % (AUTO) 4.4 % (21-51); MEAN CORPUSCULAR HEMOGLOBIN 31.9 PG (27.0-31.0); MEAN CORPUSCULAR HGB CONC 34.8 g/dL (33.0-36.5); MEAN CORPUSCULAR VOLUME 91.6 FL (78-98); MEAN PLATELET VOLUME 9.4 FL (7.4-10.4); MONOCYTES # (AUTO) 0.5 X10'3 (0-0.9); MONOCYTES % (AUTO) 7.6 % (2-12); NEUTROPHILS # (AUTO) 5.7 X10'3 (1.8-7.7); PLATELET COUNT 146 X10'3 (140-440); RED BLOOD COUNT 4.14 X10'6 (4.20-5.60); RED CELL DISTRIBUTION WIDTH 13.4 % (11.5-14.5); WHITE BLOOD COUNT 6.5 X10'3 (4.5-11.0)
--- NOTE | 2019-07-25 06:02 | NUR ---
Patient continues to have IV diuretics ordered, chung catheter not removed.
--- NOTE | 2019-07-25 06:34 | NUR ---
Problems reprioritized. Patient report given, questions answered & plan of care reviewed with oncoming RN.
[2019-07-25] MEDS: polyethylene glycol 3350 17gm powd pack PO SCH (08:00)
[2019-07-25] MEDS: propranolol 10mg tablet PO SCH ×2 (08:05→15:43)
[2019-07-25] MEDS: oseltamivir phos 75mg capsule PO SCH ×2 (08:05→19:36)
[2019-07-25] MEDS: pantoprazole 40 MG vial IV SCH (08:05)
[2019-07-25] MEDS: lactobacillus rhamnosus 10,000 MMU CELLS/CAPSULE PO SCH ×2 (08:05→19:36)
[2019-07-25] MEDS: enoxaparin 40mg/0.4ml syringe SUBCUT SCH (08:05)
[2019-07-25] MEDS: furosemide 20 MG/2 ML vial IV SCH ×2 (08:06→19:37)
[2019-07-25] MEDS: K, MAG and/or Phos replacement - Verify level? MC SCH (08:31)
[2019-07-25] MEDS: budesonide 0.5mg/2ml UD nebule IH SCH ×2 (09:00→21:07)
[2019-07-25] MEDS: levoFLOXACIN 750MG TABLET PO SCH (10:58)
[2019-07-25] MEDS: SUMAtriptan 25 MG tablet PO PRN ×3 (11:02→15:42)
--- NOTE | 2019-07-25 12:32 | NUR ---
Pt transferred to Rm 3008 per W/C. Sod phos sent with pt and reported to CHEYANNE Humphries to start it as soon as possible.
[2019-07-25] MEDS: Neutra Phos packet OGT PRN ×2 (13:11→19:35)
[2019-07-25] MEDS ORDERED: acetaminophen 325mg tablet PO PRN ×2 (15:26)
[2019-07-25] MEDS ORDERED: potassium Cl 20 mEq SR tablet PO PRN ×2 (15:27)
[2019-07-25] MEDS ORDERED: magnesium hydroxide 30ml (MOM) UD suspension PO PRN (15:27)
--- NOTE | 2019-07-25 18:00 | NUR ---
Patient in room PCU 3008. I have received report from Kristel EDWARD and had the opportunity to ask questions and assume patient care.
--- NOTE | 2019-07-25 18:10 | NUR ---
Problems reprioritized. Patient report given, questions answered & plan of care reviewed with Tiffany EDWARD.
[2019-07-25] MEDS: morphine 2 MG/ML inj. syringe IV PRN (20:55)
[2019-07-25] MEDS: insulin glargine (Lantus) pen - multi-dose SQ SCH (21:00)
[2019-07-26] MEDS: propranolol 10mg tablet PO SCH ×2 (00:37→07:40)
--- NOTE | 2019-07-26 00:44 | NUR ---
Problems reprioritized. Patient report given, questions answered & plan of care reviewed with Pat RN.
[2019-07-26] MEDS: morphine 4 MG/ML inj SYRINge IV PRN ×2 (00:56→05:03)
[2019-07-26] MEDS: mineral oil/petrolatum ophthal oint EACHEYE SCH ×2 (02:00→08:00)
[2019-07-26 02:30] VITALS: BP 113/69
[2019-07-26] MEDS: methylPREDNISolone sod succ/PF 40mg inj. IV SCH ×2 (02:44→07:40)
[2019-07-26 06:21] LABS: BASOPHILS % (AUTO) 0 % (0-1); EOSINOPHILS % (AUTO) 0.1 % (0-6); HEMATOCRIT 37.4 % (35.0-45.0); HEMOGLOBIN 12.9 g/dl (12.0-16.0); LYMPHOCYTES # (AUTO) 0.4 X10'3 (1.1-4.8); LYMPHOCYTES % (AUTO) 9.9 % (21-51); MEAN CORPUSCULAR HEMOGLOBIN 31.8 PG (27.0-31.0); MEAN CORPUSCULAR HGB CONC 34.6 g/dL (33.0-36.5); MEAN CORPUSCULAR VOLUME 91.9 FL (78-98); MEAN PLATELET VOLUME 9.5 FL (7.4-10.4); MONOCYTES # (AUTO) 0.6 X10'3 (0-0.9); MONOCYTES % (AUTO) 13.5 % (2-12); NEUTROPHILS # (AUTO) 3.3 X10'3 (1.8-7.7); NEUTROPHILS % (AUTO) 76.5 % (42-75); PLATELET COUNT 129 X10'3 (140-440); RED BLOOD COUNT 4.07 X10'6 (4.20-5.60); RED CELL DISTRIBUTION WIDTH 13.3 % (11.5-14.5); WHITE BLOOD COUNT 4.3 X10'3 (4.5-11.0)
[2019-07-26 06:26] LABS: ALANINE AMINOTRANSFERASE 59 U/L (12-78); ALBUMIN 2.6 G/DL (3.4-5.0); ALBUMIN/GLOBULIN RATIO 1.1 (1.1-1.5); ALKALINE PHOSPHATASE 88 IU/L (46-116); ANION GAP 2 (8-16); ASPARTATE AMINO TRANSFERASE 57 U/L (10-37); BILIRUBIN,TOTAL 0.2 MG/DL (0.1-1.0); CALCIUM 7.9 MG/DL (8.5-10.1); CHLORIDE 97 MMOL/L (99-107); CREATININE 0.39 MG/DL (0.40-0.90); GLUCOSE 123 MG/DL (70-104); PHOSPHORUS 2.6 MG/DL (2.3-4.5); POTASSIUM 3.4 MMOL/L (3.5-5.1); SODIUM 134 MMOL/L (135-145); TOTAL CARBON DIOXIDE 35.3 MMOL/L (24-32); TOTAL PROTEIN 4.9 G/DL (6.4-8.2); eGFR > 90 ML/MIN
--- NOTE | 2019-07-26 06:31 | NUR ---
Patient in room PCU 3008. I have received report from Pat and had the opportunity to ask questions and assume patient care.
[2019-07-26 06:32] LABS: BLOOD UREA NITROGEN 22 MG/DL (7-18); BUN/CREATININE RATIO 56.4 (6.6-38.0)
[2019-07-26 07:00] VITALS: BP 125/72
[2019-07-26] MEDS ORDERED: pantoprazole 40mg Tablet.DR PO SCH (07:30)
[2019-07-26] MEDS: lactobacillus rhamnosus 10,000 MMU CELLS/CAPSULE PO SCH (07:39)
[2019-07-26] MEDS: oseltamivir phos 75mg capsule PO SCH (07:40)
[2019-07-26] MEDS: furosemide 20 MG/2 ML vial IV SCH (07:40)
[2019-07-26] MEDS: polyethylene glycol 3350 17gm powd pack PO SCH (07:41)
[2019-07-26] MEDS: enoxaparin 40mg/0.4ml syringe SUBCUT SCH (07:41)
[2019-07-26] MEDS: K, MAG and/or Phos replacement - Verify level? MC SCH (08:00)
[2019-07-26] MEDS: ipratropium/albuterol 3ml nebule IH SCH (10:17)
[2019-07-26] MEDS: budesonide 0.5mg/2ml UD nebule IH SCH (10:18)
[2019-07-26] MEDS ORDERED: PRED10TA23 PO (11:10)
[2019-07-26] MEDS ORDERED: METH750T3 PO (11:10)
[2019-07-26] MEDS ORDERED: TAM75C PO (11:12)
[2019-07-26] MEDS: levoFLOXACIN 750MG TABLET PO SCH (11:31)
[2019-07-26] MEDS ORDERED: LEVO500T89 PO (12:08)
--- NOTE | 2019-07-26 12:47 | NUR ---
Verified discharge order for Levaquin with Dr. George, order was confirmed for Levaquin 500 mg po daily X 5 days.
--- NOTE | 2019-07-26 13:06 | NUR ---
Patient was cleared to discharge home. All medications and discharge instructions reviewed with patient and her spouse. Tele box removed. Both PIV's removed without incident. Confirmed patients medications were filled and ready for bean picker with Pharmacist Juarez at [facility]. Patient stated she already has a FU with her primary physician. Patient was encouraged to increase potassium intake related to her potassium level today. Patient did receive one dose of potassium however but still educated her on that. Megan left in stable condition.
== END 2019-07-26 12:40 | disposition home or self-care (01) | DRG 208 ==
LOC: ER 18:32 → ICU 2S 22:02 → CMPBEDREQ 23:41 → PCU 3S 07-25 12:25
PROVIDERS: ADMIT Internal Medicine Critical Care Medicine; ATTEND Internal Medicine Critical Care Medicine
PROC: 5A1945Z Respiratory Ventilation, 24-96 Consecutive Hours (ICD-10-PCS; principal; 2019-07-22)
PROC: 0BH17EZ Insertion of Endotracheal Airway into Trachea, Via Natural or Artificial Opening (ICD-10-PCS; 2019-07-22)
DX: J96.00 Acute respiratory failure, unspecified whether with hypoxia or hypercapnia (principal); J11.00 Influenza due to unidentified influenza virus with unspecified type of pneumonia; J44.1 Chronic obstructive pulmonary disease with (acute) exacerbation; E22.2 Syndrome of inappropriate secretion of antidiuretic hormone; E87.4 Mixed disorder of acid-base balance; E87.0 Hyperosmolality and hypernatremia; J44.0 Chronic obstructive pulmonary disease with (acute) lower respiratory infection; E87.8 Other disorders of electrolyte and fluid balance, not elsewhere classified; F17.200 Nicotine dependence, unspecified, uncomplicated; G43.909 Migraine, unspecified, not intractable, without status migrainosus; B96.5 Pseudomonas (aeruginosa) (mallei) (pseudomallei) as the cause of diseases classified elsewhere
CPT/HCPCS: 31500; 36415; 36600; 71045; 80048; 80053; 81001; 82803; 82948; 83036; 83605; 83735; 83930; 83935; 84100; 84134; 84145; 84295; 84300; 84478; 85018; 85025; 87070; 87077; 87081; 87186; 94002; 94003; 94640; 94760; 96374; 96375; 97161; 97530; 99291; C9113; G0378; J0330; J0456; J0696; J1100; J1650; J1815; J1885; J1940; J1956; J2060; J2250; J2270; J2405; J2704; J2920; J3010; J3475; J7060; J7626

== ENCOUNTER 2020-09-17 07:08 | Inpatient (IN) | payer BC ==
[~2020-09-17] VITALS: Ht 152.4 cm; Wt 45.5 kg
[2020-09-17] VITALS (14 sets, daily range): BP systolic 119–166; BP diastolic 68–87
[~2020-09-17 07:08] MED LIST changes: +ACET-3067 PO; +ALBU8.5H8 PO; +ALPR0.5T9 PO; +BUDE10.2 IH; +ESTR0.5T28 PO; +METH-798 PO; -METH4TAB81 PO; +PROP20TA6 PO; +TAM75C PO; +TIOT18CA3 IH; -etomidate 2mg/ml inj. ONE
[2020-09-17 07:54] LABS: BASOPHILS % (AUTO) 0.3 % (0-1); EOSINOPHILS # (AUTO) 0.2 X10'3 (0-0.9); EOSINOPHILS % (AUTO) 1.5 % (0-6); HEMATOCRIT 45.6 % (35.0-45.0); HEMOGLOBIN 15.2 g/dl (12.0-16.0); LYMPHOCYTES # (AUTO) 1.3 X10'3 (1.1-4.8); LYMPHOCYTES % (AUTO) 12.4 % (21-51); MEAN CORPUSCULAR HEMOGLOBIN 30.7 PG (27.0-31.0); MEAN CORPUSCULAR HGB CONC 33.3 g/dL (33.0-36.5); MEAN CORPUSCULAR VOLUME 92.3 FL (78-98); MEAN PLATELET VOLUME 8.9 FL (7.4-10.4); MONOCYTES # (AUTO) 0.6 X10'3 (0-0.9); MONOCYTES % (AUTO) 5.5 % (2-12); NEUTROPHILS # (AUTO) 8.6 X10'3 (1.8-7.7); NEUTROPHILS % (AUTO) 80.3 % (42-75); PLATELET COUNT 234 X10'3 (140-440); RED BLOOD COUNT 4.95 X10'6 (4.20-5.60); RED CELL DISTRIBUTION WIDTH 13.8 % (11.5-14.5); WHITE BLOOD COUNT 10.8 X10'3 (4.5-11.0)
[2020-09-17] MEDS ORDERED: ketorolac trometh. 30mg/ml inj. IV ONE (08:00)
[2020-09-17] MEDS ORDERED: morphine 4 MG/ML inj SYRINge IV ONE ×2 (08:00→09:50)
[2020-09-17] MEDS ORDERED: ondansetron/PF 4mg/2ml inj IV ONE (08:00)
[2020-09-17 08:01] LABS: ALANINE AMINOTRANSFERASE 23 U/L (12-78); ALBUMIN 4.2 G/DL (3.4-5.0); ALBUMIN/GLOBULIN RATIO 1.6 (1.1-1.5); ALKALINE PHOSPHATASE 78 IU/L (46-116); ANION GAP 8 (8-16); ASPARTATE AMINO TRANSFERASE 12 U/L (10-37); BILIRUBIN,TOTAL 0.5 MG/DL (0.1-1.0); BLOOD UREA NITROGEN 16 MG/DL (7-18); BUN/CREATININE RATIO 26.7 (6.6-38.0); CALCIUM 9.1 MG/DL (8.5-10.1); CHLORIDE 100 MMOL/L (99-107); GLUCOSE 118 MG/DL (70-104); POTASSIUM 3.5 MMOL/L (3.5-5.1); SODIUM 138 MMOL/L (135-145); TOTAL CARBON DIOXIDE 30.2 MMOL/L (24-32); TOTAL PROTEIN 6.8 G/DL (6.4-8.2); eGFR > 90 ML/MIN
--- NOTE | 2020-09-17 08:16 | NUR ---
PT TO CT VIA WC
[2020-09-17 08:53] LABS: CLARITY,URINE SLIGHTLY CLOUDY (Clear); COLOR,URINE YELLOW (Yellow); GLUCOSE, URINE NEGATIVE (Neg); KETONES,URINE 15 mg/dl (Neg); LEUKOCYTE ESTERASE ,URINE TRACE (Neg); NITRITES, URINE NEGATIVE (Neg); OCCULT BLOOD,URINE LARGE (Neg); PROTEIN,URINE 30 mg/dl (Neg); UA COLLECTION TYPE CLN CATCH MIDSTREAM
[2020-09-17 09:02] LABS: SQUAMOUS EPITHELIAL CELL,UR MODERATE /LPF (FEW)
[2020-09-17 09:05] LABS: RBC,URINE TNTC /HPF (0-2); WBC,URINE 0-4 /HPF (0-4)
[2020-09-17 09:10] LABS: BACTERIA,URINE 2+ /HPF (Neg)
[2020-09-17] MEDS ORDERED: PROP10TA10 PO (10:17)
[2020-09-17] MEDS ORDERED: AMYL1CAP62 PO (10:17)
[2020-09-17] MEDS ORDERED: CHOL100046 PO (10:17)
[2020-09-17] MEDS ORDERED: [UNRECOGNIZED DRUG - CODE] PO (10:17)
[2020-09-17] MEDS ORDERED: RIZA10TA24 PO (10:17)
[2020-09-17] MEDS ORDERED: CHOL10008 PO (10:17)
[2020-09-17] MEDS ORDERED: magnesium 4gm in 100ml NS 100 ML IV PRN (11:05)
[2020-09-17] MEDS ORDERED: potassium Cl 20 mEq SR tablet PO PRN ×2 (11:05)
[2020-09-17] MEDS ORDERED: acetaminophen 650mg rectal suppository RC PRN (11:05)
[2020-09-17] MEDS ORDERED: magnesium hydroxide 30ml (MOM) UD suspension PO PRN (11:05)
[2020-09-17] MEDS ORDERED: fentaNYL/PF 50MCG/1 ML 2ML syringe IV ONE (11:05)
[2020-09-17] MEDS ORDERED: potassium Cl 40MEQ/1/2NS 520ml 520 ML IV PRN ×2 (11:05)
[2020-09-17] MEDS ORDERED: magnesium 2GM in 50ml NS 50 ML IV PRN (11:05)
[2020-09-17] MEDS ORDERED: mag hydrox/Alum hydrox/simeth 30ml oral suspension PO PRN (11:05)
[2020-09-17] MEDS ORDERED: HYDROcodone/acetaminophen 5mg/325mg tablet PO PRN (11:05)
[2020-09-17] MEDS ORDERED: ondansetron/PF 4mg/2ml inj IV PRN ×2 (11:05→14:20)
[2020-09-17] MEDS ORDERED: bisacodyl 10mg suppository rectal RC PRN (11:05)
[2020-09-17] MEDS ORDERED: diphenhydrAMINE 25mg capsule PO PRN (11:05)
[2020-09-17] MEDS ORDERED: metoclopramide 5 mg/ml inj IV PRN (11:05)
[2020-09-17] MEDS ORDERED: magnesium Cl slow-release 64mg tablet PO PRN (11:05)
[2020-09-17] MEDS ORDERED: morphine 2 MG/ML inj. syringe IV PRN ×3 (11:05→14:20)
[2020-09-17] MEDS ORDERED: acetaminophen 325mg tablet PO PRN (11:05)
[2020-09-17] MEDS: CefTRIAXone/D5W-Rocephin 1gm 50 ML IV SCH (12:01)
[2020-09-17] MEDS: normal saline 1000ml 1,000 ML IV SCH ×2 (12:01→19:55)
[2020-09-17] MEDS ORDERED: iohexol 300 MG/1 ML 50ml polymer ONE (13:22)
[2020-09-17] MEDS ORDERED: sevoflurane 250ml liquid IH ONE (13:59)
[2020-09-17] MEDS ORDERED: midazolam 2 mg/2 ml injection ONE (14:02)
[2020-09-17] MEDS ORDERED: fentaNYL/PF 50MCG/1 ML 2ML syringe ONE (14:02)
[2020-09-17] MEDS ORDERED: propofol inj 20 ML IV ONE (14:04)
[2020-09-17] MEDS ORDERED: ePHEDrine 50MG/ML INJ. ONE (14:18)
[2020-09-17] MEDS ORDERED: ringers solution, lacted 1,000 ML IV SCH (14:20)
[2020-09-17] MEDS ORDERED: morphine 4 MG/ML inj SYRINge IV PRN (14:20)
[2020-09-17] MEDS ORDERED: meperidine/PF 25mg/ml syringe IV PRN ×3 (14:20)
[2020-09-17] MEDS ORDERED: proCHLORperazine 10 MG/2 ml inj IV PRN (14:20)
[2020-09-17] MEDS ORDERED: ceFAZolin 1000mg inj ONE ×2 (14:32)
--- NOTE | 2020-09-17 14:35 | NUR ---
ADMITTED TO PACU FROM OR ACCOMPANIED BY ANESTHESIA. INTIAL PHYSICAL ASSESSMENT DONE AND RECORDED. REPORT RECEIVED FROM ANESTHESIA.
--- NOTE | 2020-09-17 15:15 | NUR ---
PACU DISCHARGE CRITERIA MET, REPORT GIVEN TO FLOOR. DENIES PAIN OR DISCOMFORT, TRANSFERRED TO ROOM IN STABLE GOOD CONDITION.
--- NOTE | 2020-09-17 15:39 | NUR ---
Patient in room PACU 2. I have received report from Florencia EDWARD and had the opportunity to ask questions and assume patient care.
--- NOTE | 2020-09-17 15:55 | NUR ---
PAGER ID: [phone] MESSAGE: Sofía -Surg- [phone] dick. Pt back from surgery per recovery Dr. Giorgi kan for discharge and patient wants to go home
[2020-09-17] MEDS: acetaminophen 325mg tablet PO PRN (16:12)
[2020-09-17] MEDS ORDERED: SULF1TAB49 PO (17:12)
--- NOTE | 2020-09-17 18:32 | NUR ---
PAGER ID: [phone] MESSAGE: Yi-Surg [phone] Re: Josy BurgerA patient wants to know if she will be going home tonight also would like Maxalt for a migraine. please call Addendum: 09/17/20 at 1858 by Yi Lei RN Per Dr Bowers patient will be discharged tomorrow he will come by and speak with her in a little bit. Also received orders for Maxalt or pharmacy can substitue.
--- NOTE | 2020-09-17 18:42 | NUR ---
Patient in room [facility] 345. I have received report from PA EDWARD WITH GERMAN EDWARD and had the opportunity to ask questions and assume patient care.
--- NOTE | 2020-09-17 18:42 | NUR ---
Problems reprioritized. Patient report given, questions answered & plan of care reviewed with Elvia EDWARD.
[2020-09-17] MEDS ORDERED: SUMAtriptan 25 MG tablet PO PRN (19:45)
[2020-09-17] MEDS: K and/or MAG REPLACEMENT MC SCH (20:00)
[2020-09-17] MEDS: HYDROcodone/acetaminophen 10/325mg tab PO PRN (20:46)
[2020-09-17] MEDS ORDERED: acetaminophen w/codeine (60MG) #4 tablet PO PRN (21:25)
[2020-09-17] MEDS ORDERED: ALPRAZolam 0.5mg tablet PO PRN (21:25)
[2020-09-17] MEDS ORDERED: albuterol 2.5 MG/3 ML nebule NEB PRN (21:35)
[2020-09-17] MEDS ORDERED: cyclobenzaprine 10mg tablet PO PRN (21:35)
[2020-09-18] MEDS: ipratropium/albuterol 3ml nebule IH SCH ×2 (03:48→08:39)
[2020-09-18 03:51] VITALS: BP 148/72
[2020-09-18] MEDS: acetaminophen 325mg tablet PO PRN (03:55)
[2020-09-18] MEDS: normal saline 1000ml 1,000 ML IV SCH (04:48)
[2020-09-18] MEDS: HYDROcodone/acetaminophen 10/325mg tab PO PRN (05:44)
--- NOTE | 2020-09-18 06:03 | NUR ---
Problems reprioritized. Patient report given, questions answered & plan of care reviewed with Sofía RN with Yi EDWARD.
[2020-09-18 06:22] LABS: BASOPHILS % (AUTO) 0.4 % (0-1); EOSINOPHILS # (AUTO) 0.2 X10'3 (0-0.9); EOSINOPHILS % (AUTO) 2.9 % (0-6); HEMATOCRIT 38.3 % (35.0-45.0); HEMOGLOBIN 13.2 g/dl (12.0-16.0); LYMPHOCYTES # (AUTO) 0.7 X10'3 (1.1-4.8); LYMPHOCYTES % (AUTO) 12.1 % (21-51); MEAN CORPUSCULAR HEMOGLOBIN 31.5 PG (27.0-31.0); MEAN CORPUSCULAR HGB CONC 34.4 g/dL (33.0-36.5); MEAN CORPUSCULAR VOLUME 91.7 FL (78-98); MEAN PLATELET VOLUME 8.7 FL (7.4-10.4); MONOCYTES # (AUTO) 0.5 X10'3 (0-0.9); MONOCYTES % (AUTO) 7.8 % (2-12); NEUTROPHILS # (AUTO) 4.5 X10'3 (1.8-7.7); NEUTROPHILS % (AUTO) 76.8 % (42-75); PLATELET COUNT 140 X10'3 (140-440); RED BLOOD COUNT 4.17 X10'6 (4.20-5.60); RED CELL DISTRIBUTION WIDTH 13.9 % (11.5-14.5); WHITE BLOOD COUNT 5.9 X10'3 (4.5-11.0)
[2020-09-18 06:27] LABS: ALANINE AMINOTRANSFERASE 23 U/L (12-78); ALBUMIN 3.4 G/DL (3.4-5.0); ALBUMIN/GLOBULIN RATIO 1.5 (1.1-1.5); ALKALINE PHOSPHATASE 70 IU/L (46-116); ANION GAP 8 (8-16); ASPARTATE AMINO TRANSFERASE 16 U/L (10-37); BILIRUBIN,TOTAL 0.2 MG/DL (0.1-1.0); CALCIUM 8.6 MG/DL (8.5-10.1); CHLORIDE 108 MMOL/L (99-107); CHOL/HDL RATIO 3.4 (0.00-4.99); CHOLESTEROL 101 MG/DL (0-200); CREATININE 0.44 MG/DL (0.40-0.90); GLUCOSE 100 MG/DL (70-104); HDL CHOLESTEROL 30 MG/DL (35-60); LDL CHOLESTEROL 57 MG/DL (50-100); MAGNESIUM 1.8 MG/DL (1.5-2.4); PHOSPHORUS 2.6 MG/DL (2.3-4.5); POTASSIUM 3.3 MMOL/L (3.5-5.1); SODIUM 142 MMOL/L (135-145); TOTAL CARBON DIOXIDE 26.4 MMOL/L (24-32); TOTAL PROTEIN 5.6 G/DL (6.4-8.2); TRIGLYCERIDES 64 MG/DL (20-135); eGFR > 90 ML/MIN
[2020-09-18 06:34] LABS: BLOOD UREA NITROGEN 10 MG/DL (7-18); BUN/CREATININE RATIO 22.7 (6.6-38.0)
--- NOTE | 2020-09-18 06:43 | NUR ---
Patient in room [facility]IT[facility] 345. I have received report from Elvia EDWARD and had the opportunity to ask questions and assume patient care.
[2020-09-18 07:48] VITALS: BP 147/70
[2020-09-18] MEDS ORDERED: propranolol 10mg tablet PO SCH (08:00)
[2020-09-18] MEDS: CefTRIAXone/D5W-Rocephin 1gm 50 ML IV SCH (08:49)
[2020-09-18] MEDS: K and/or MAG REPLACEMENT MC SCH (08:51)
[2020-09-18] MEDS ORDERED: budesonide 0.5mg/2ml UD nebule IH SCH (09:00)
[2020-09-18] MEDS ORDERED: SUMAtriptan 25 MG tablet PO PRN (09:09)
--- NOTE | 2020-09-18 09:53 | NUR ---
Patient turned welcome wagon hostess light due to having a very bad migraine. Patient was given Imitrex per md orders and Xanax also per MD orders a short time ago. Patient RR was 24 she was very anxious, Patient states she gets migraines like this at home and she puts ice on her head. I made patient 2 ice packs for her head and gave her a cool wet wash cloth for her eyes. Patients head of bed was reclined and lights are out. Patients RR rate now 18 and appears a little more comfortable and calm will continue to reassess and advised patient to turn welcome wagon hostess light if the above measures do not help. Current BP is 174/88 HR 90. Primary RN Sofía chester
[2020-09-18 11:00] VITALS: BP 179/77
[2020-09-18] MEDS ORDERED: potassium Cl 20 mEq SR tablet PO STA (12:30)
--- NOTE | 2020-09-18 14:03 | NUR ---
Had to open patients chart to print medication list for medication call in.
--- NOTE | 2020-09-18 14:20 | NUR ---
Patients discharge instructions reviewed with patient at bedside. Patient verbalized understanding all questions answered. Patient's IV dc'd cannula intact. Patient states she has all belongings- headache relieved. Patient taken to vehicle driving by CLAIRE Santa.
--- NOTE | 2020-09-19 13:55 | NUR ---
CASE MANAGEMENT DISCHARGE FOLLOW UP: Spoke with pt via telephone. Reports that she is really exhausted, states has not slept well the last few nights, thinks that is the cause; denies CP, dizziness, SOB/dyspnea, fever. States that she does still have blood in urine but not any worse than during hospitalization. She also has pain, but it is not worse than when discharged. She also states that she is "peeing like crazy." Advised pt that if exhaustion does not go away with rest, or she begins to experience other symptoms to contact MD, pt verbalizes understanding of s/sx requiring further evaluation/emergent assistance. Upon inquiry, pt states that she is able to check BP, states was high during hospitalization, pt checked BP while on phone, 154/83, states a little higher than usual but lower than when in hospital. Verbalizes understanding of new and current medications. Verbalizes compliance with MD discharge instructions. Verbalizes understanding of the importance in making/keeping follow-up appointments, states has an appointment with PCP, waiting to hear back from Dr. Rand's office. States no further questions/concerns at this time.
== END 2020-09-18 13:20 | disposition home or self-care (01) | DRG 661 ==
LOC: ER 07:09 → ED HOLD 11:05 → EDBEDREQ 12:24 → PACU 14:13 → SUR 3N 15:20
PROVIDERS: ADMIT Family Medicine; ATTEND Family Medicine
PROC: 0T778DZ Dilation of Left Ureter with Intraluminal Device, Via Natural or Artificial Opening Endoscopic (ICD-10-PCS; principal; 2020-09-17 13:59)
DX: N13.2 Hydronephrosis with renal and ureteral calculous obstruction (principal); F41.9 Anxiety disorder, unspecified; Z20.822 Contact with and (suspected) exposure to COVID-19; F17.210 Nicotine dependence, cigarettes, uncomplicated; G43.909 Migraine, unspecified, not intractable, without status migrainosus; J44.9 Chronic obstructive pulmonary disease, unspecified; Z87.442 Personal history of urinary calculi; Z90.710 Acquired absence of both cervix and uterus; Z71.6 Tobacco abuse counseling; Z79.899 Other long term (current) drug therapy
CPT/HCPCS: 36415; 74176; 80053; 80061; 81001; 83036; 83605; 83735; 84100; 85025; 87040; 87081; 87088; 87635; 93005; 94640; 94760; 96374; 96375; 99285; A4618; C1758; C1769; C2617; G0378; J0690; J0696; J1885; J2250; J2270; J2405; J2704; J3010; J7030; J7626; Q9967

== ENCOUNTER 2020-10-06 11:24 | Emergency (ER) | payer BC ==
[~2020-10-06] VITALS: Ht 152.4 cm; Wt 42.7 kg
[~2020-10-06 11:24] MED LIST changes: +AMYL1CAP62 PO; +CHOL100046 PO; +PROP10TA10 PO; -PROP20TA6 PO; +RIZA10TA24 PO; -TAM75C PO; +[UNRECOGNIZED DRUG - CODE] PO
[2020-10-06] MEDS ORDERED: ondansetron/PF 4mg/2ml inj IV ONE (12:00)
[2020-10-06] MEDS ORDERED: normal saline 1000ml 1,000 ML IV ONE ×2 (12:00→13:45)
[2020-10-06 12:41] LABS: BASOPHILS % (AUTO) 0.4 % (0-1); EOSINOPHILS # (AUTO) 0.4 X10'3 (0-0.9); EOSINOPHILS % (AUTO) 4.2 % (0-6); HEMATOCRIT 44.4 % (35.0-45.0); HEMOGLOBIN 14.9 g/dl (12.0-16.0); LYMPHOCYTES # (AUTO) 1.2 X10'3 (1.1-4.8); MEAN CORPUSCULAR HEMOGLOBIN 31.1 PG (27.0-31.0); MEAN CORPUSCULAR HGB CONC 33.6 g/dL (33.0-36.5); MEAN CORPUSCULAR VOLUME 92.3 FL (78-98); MEAN PLATELET VOLUME 8.9 FL (7.4-10.4); MONOCYTES # (AUTO) 0.6 X10'3 (0-0.9); MONOCYTES % (AUTO) 7.3 % (2-12); NEUTROPHILS # (AUTO) 6.5 X10'3 (1.8-7.7); NEUTROPHILS % (AUTO) 74.1 % (42-75); PLATELET COUNT 229 X10'3 (140-440); RED BLOOD COUNT 4.81 X10'6 (4.20-5.60); RED CELL DISTRIBUTION WIDTH 13.7 % (11.5-14.5); WHITE BLOOD COUNT 8.7 X10'3 (4.5-11.0)
[2020-10-06 12:45] LABS: CLARITY,URINE CLOUDY (Clear); COLOR,URINE YELLOW (Yellow); GLUCOSE, URINE NEGATIVE (Neg); KETONES,URINE >=80 mg/dl (Neg); LEUKOCYTE ESTERASE ,URINE SMALL (Neg); NITRITES, URINE NEGATIVE (Neg); OCCULT BLOOD,URINE LARGE (Neg); PROTEIN,URINE >=300 mg/dl (Neg); UROBILINOGEN,URINE 0.2 E.U/dL (0.2-1.0)
[2020-10-06 12:51] LABS: UA COLLECTION TYPE CLN CATCH MIDSTREAM
[2020-10-06 12:53] LABS: RBC,URINE TNTC /HPF (0-2)
[2020-10-06 12:54] LABS: BACTERIA,URINE FEW /HPF (Neg)
[2020-10-06 12:55] LABS: MUCUS STRANDS FEW /LPF (Neg)
[2020-10-06 12:57] LABS: ALANINE AMINOTRANSFERASE 24 U/L (12-78); ALBUMIN 4.2 G/DL (3.4-5.0); ALBUMIN/GLOBULIN RATIO 1.7 (1.1-1.5); ALKALINE PHOSPHATASE 79 IU/L (46-116); ANION GAP 8 (8-16); ASPARTATE AMINO TRANSFERASE 11 U/L (10-37); BILIRUBIN,TOTAL 0.5 MG/DL (0.1-1.0); BLOOD UREA NITROGEN 16 MG/DL (7-18); BUN/CREATININE RATIO 33.3 (6.6-38.0); CALCIUM 9.2 MG/DL (8.5-10.1); CHLORIDE 96 MMOL/L (99-107); CREATININE 0.48 MG/DL (0.40-0.90); GLUCOSE 92 MG/DL (70-104); LIPASE 65 U/L (73-393); POTASSIUM 3.8 MMOL/L (3.5-5.1); SODIUM 130 MMOL/L (135-145); TOTAL CARBON DIOXIDE 25.6 MMOL/L (24-32); TOTAL PROTEIN 6.7 G/DL (6.4-8.2); eGFR > 90 ML/MIN
[2020-10-06 12:57] LABS: HYALINE CASTS 0-3 /LPF (NEGATIVE)
[2020-10-06 13:01] LABS: SQUAMOUS EPITHELIAL CELL,UR MANY /LPF (FEW)
[2020-10-06 13:02] LABS: TRANSITIONAL EPI CELLS,URINE FEW /HPF
--- NOTE | 2020-10-06 13:04 | NUR ---
URINE REJECTED FOR CULTURE
[2020-10-06] MEDS ORDERED: acetaminophen 325mg tablet PO ONE (13:10)
[2020-10-06] MEDS ORDERED: proCHLORperazine 10 MG/2 ml inj IV ONE (13:20)
[2020-10-06] MEDS ORDERED: diphenhydrAMINE 50 mg/ml inj IV ONE (13:20)
[2020-10-06] MEDS ORDERED: diazepam inj 5 MG/ML inj. IV ONE (13:50)
[2020-10-06] MEDS ORDERED: ONDA4TAB6 PO (14:23)
[2020-10-06] MEDS ORDERED: CEPH250T PO (14:23)
[2020-10-06 14:58] VITALS: BP 157/83
== END 2020-10-06 15:00 | disposition home or self-care (01) ==
LOC: ER 11:27
DX: N39.0 Urinary tract infection, site not specified (principal); G43.909 Migraine, unspecified, not intractable, without status migrainosus; R63.0 Anorexia; R11.2 Nausea with vomiting, unspecified; J44.9 Chronic obstructive pulmonary disease, unspecified; Z87.442 Personal history of urinary calculi; Z98.890 Other specified postprocedural states; Z88.1 Allergy status to other antibiotic agents; Z88.8 Allergy status to other drugs, medicaments and biological substances; Z79.2 Long term (current) use of antibiotics; Z79.899 Other long term (current) drug therapy
CPT/HCPCS: 36415; 80053; 81001; 83690; 85025; 96361; 96374; 96375; 99284; J0780; J1200; J2405; J3360; J7030